=== PATIENT | female | born 1985 | race African-American/Black ===

== ENCOUNTER 2018-02-19 18:49 | Emergency (ER) | payer MEDICAID ==
[~2018-02-19] VITALS: Ht 165.1 cm; Wt 68.0 kg
[~2018-02-19 18:49] MED LIST: Ibuprofen Micronized PO; PREN-96 PO
[2018-02-19 21:08] LABS: Basophils # (auto) 0 uL; Basophils % (auto) 0.5 % (0.0-2.0); Eosinophils # (auto) 0.4 uL; Eosinophils % (auto) 4.5 % (0.0-7.0); Hemoglobin 11.8 g/dL (12.2-16.2); Lymphocytes # (auto) 1.3 uL; Mean Corpuscular Hemoglobin 32.8 pg (28.0-32.0); Mean Corpuscular Hgb Conc. 32.9 g/dL (32.0-36.0); Mean Corpuscular Volume 99.5 fL (80.0-100.0); Monocytes # (auto) 0.7 uL; Monocytes % (auto) 7.6 % (0.0-12.0); Neutrophils # (auto) 6.3 uL; Neutrophils % (auto) 72.4 % (37.0-80.0); Nucleated Red Blood Cells % 0.1 %; Platelet Count (auto) 286 10^3/uL (140-450); Red Blood Cells 3.61 10^6/uL (4.0-5.20); Red Cell Distribution Width 14.1 % (11.8-14.3); White Blood Cell 8.7 10^3/uL (4.4-10.8)
[2018-02-19 21:24] LABS: INR 0.95 (0.9-1.15); Partial Thromboplastin Time 26.3 sec (22.64-33.71); Prothrombin Time 10.3 sec (9.37-12.3)
[2018-02-19 21:26] LABS: Albumin 3.7 g/dL (3.4-5.0); BUN/Creatinine Ratio 19.2; Potassium 3.9 mmol/L (3.5-5.1)
[2018-02-19 21:29] LABS: Bilirubin, Total 0.3 mg/dL (0.2-1.0); Total Protein 6.6 g/dL (6.4-8.2)
[2018-02-19 23:51] LABS: Urine Bacteria FEW /hpf (None Seen); Urine Blood Negative /uL (Negative); Urine Mucus FEW (None Seen); Urine Specific Gravity 1.028 (1.001-1.035); Urine WBC 3 /hpf (0 - 5)
[2018-02-20 00:17] VITALS: BP 111/55
[2018-02-20] MEDS ORDERED: cefTRIAXone SOD 1,000 MG VL ONE (01:38)
[2018-02-20] MEDS ORDERED: cefTRIAXone SOD 1,000 MG VL IM ONE ×2 (01:45)
== END 2018-02-20 02:05 | disposition home or self-care (01) ==
LOC: ER 18:49
DX: K64.9 Unspecified hemorrhoids (principal); K42.9 Umbilical hernia without obstruction or gangrene; K59.00 Constipation, unspecified; N39.0 Urinary tract infection, site not specified; Z79.899 Other long term (current) drug therapy
CPT/HCPCS: 36415; 74176; 80053; 81001; 81025; 85025; 85610; 85730; 96372; 99285; J0696